=== PATIENT | female | born 1985 | race Caucasian/White ===

== ENCOUNTER 2016-05-19 05:40 | Inpatient (IN) | payer OTHER ==
[2016-05-19] MEDS ORDERED: LACTATED RINGERS 1,000 ML IV PRN (06:06)
[2016-05-19] MEDS ORDERED: OXYTOCIN IN LR 500 ML IV ONE ×2 (06:06→06:53)
[2016-05-19 06:33] VITALS: BMI 29.8
[2016-05-19] MEDS ORDERED: LIDOCAINE 1% (PRES FREE) 30 ML VIAL ONE (06:53)
[2016-05-19] MEDS ORDERED: OXYTOCIN 10 UNITS/ML VIAL ONE (06:53)
[2016-05-19] MEDS ORDERED: MINERAL OIL 25 ML BOT ONE (06:53)
[2016-05-19] MEDS ORDERED: LIDOCAINE Viscous 2% 15 ML UDCUP ONE (06:53)
[2016-05-19] MEDS ORDERED: PUMP TUBING ONE (06:53)
[2016-05-19] MEDS ORDERED: SODIUM CHLORIDE 0.9% FLUSH 10 ML ONE (06:54)
[2016-05-19] MEDS ORDERED: LACTATED RINGERS 0 ML ONE (06:54)
[2016-05-19] MEDS ORDERED: IV START KIT ONE (06:54)
[2016-05-19 06:58] LABS: HEMATOCRIT 37.6 % (37.0-47.0); MEAN CELL VOLUME 93.1 fl (81.0-99.0); MEAN CORPUSCULAR HEMOGLOBIN 29.7 pg (27.0-31.0); MEAN CORPUSCULAR HGB CONC 31.9 g/dl (33.0-37.0); RED CELL DISTRIBUTION WIDTH 12.7 % (11.5-14.5)
[2016-05-19] MEDS ORDERED: SODIUM CHLORIDE 0.9% FLUSH 20 ML ONE (07:19)
[2016-05-19] MEDS: FENTANYL 100 MCG/2 ML VIAL IV PRN ×3 (09:13→13:10)
[2016-05-19] MEDS: CALCIUM CARBONATE 500 MG TAB.CHEW PO PRN ×3 (10:37→15:41)
--- NOTE | 2016-05-19 13:14 | PCMAN ---
OB Admission Note - History : 1 Term: 0 : 0 Abortions (S&E): 0 Livin Gestational Age (weeks): 39 Days (#/7): 5 Admit Cervical Dilation:: 4 Admit Cervical Effacement (%):: 90 Admit Station:: -1 Admit Presentaton:: vertext Membrane Status: Intact Contractions: Yes Contraction Frequency:: 6-8 Heart Rate:: 130 Status:: category 1 EFW:: 6.5 Summary of Course:: DAtes by LMP, confirmed by US. NO complications. - Labs Blood Type: O (+) positive Hct/Hgb:: 37.6/12 Rubella Status: Immune GBS Status: Negative Abnormal Labs: None - Physical Exam General: Afebrile, Moderate Distress Psych/Mental Status: Mood/Affect Appropriate Neurological: Grossly Intact, Alert, Oriented x 4, Normal Speech, Normal Reflexes, Cranial Nerves 3-12 Intact HEENT: Atraumatic, PERRLA, EOMI, Mucous membr. moist/pink Lungs: Clear to Auscultation Bilaterally Cardiovascular: Regular Rate and Rhythm, No Murmur Abdomen: Normal Bowel Sounds Genitourinary: Normal Female Genitalia, No Edema Rectal Exam: Other (ext hemorrhoid) Extremities: Full ROM, No Edema Skin: Normal Color, No Rash - Problems (1) with 39 completed weeks gestation Status: Acute Code: Z3A.39 Assessment/Plan: Active labor, expect . IV Fentanyl ordered for pain management.
[2016-05-19] MEDS ORDERED: LIDOCAINE 1% 2 ML VIAL SUB-Q ONE (16:12)
[2016-05-19] MEDS ORDERED: LIDOCAINE 1% (PRES FREE) 30 ML VIAL SUB-Q ONE (16:15)
[2016-05-19] MEDS ORDERED: OXYCODONE HCL 5 MG TABLET PO PRN (16:47)
[2016-05-19] MEDS ORDERED: LANOLIN 50 APPLIC/7G TUBE TP PRN (16:47)
[2016-05-19] MEDS ORDERED: ACETAMINOPHEN 325 MG TABLET PO PRN (16:47)
[2016-05-19] MEDS ORDERED: OXYCODONE/ACETAMINOPHEN 5/325 MG TABLET PO PRN (16:47)
[2016-05-19] MEDS ORDERED: BENZOCAINE/MENTHOL 60 APPLIC/BOT TP PRN (16:47)
[2016-05-19] MEDS: IBUPROFEN 800 MG TABLET PO SCH ×2 (17:27→23:42)
--- NOTE | 2016-05-19 20:23 | PCMDEL ---
Delivery Note - Labor 1st stage (hr/min):: 10 hr/ 4 min 2nd stage (hr/min):: 39 min 3rd stage (hr/min):: 10 min Total (hr/min):: 10 hr/ 53 min Pushed (hr/min):: 39 min - Delivery Delivery (Date): 05/19/16 Delivery (Time): 16:04 Infant Gender: Female Weight: 3.2 kg Length: 1 ft 7.5 in Presentation: Cephalic Position: OA Umbilical Cord: 3 Vessel Delayed Cord Clamping:: 2-3 min 1 Minute Total: 9 5 Minute Total: 9 Placenta:: intact EBL:: 100 ml Perineum:: 2nd degree perineal laceration with left labial extension Suture:: 2-0 Chromic Anesthesia/Meds:: Local for repair Length ROM:: 3 hr Comments:: Beautiful, uncomplicated delivery.
[2016-05-20] MEDS: IBUPROFEN 800 MG TABLET PO SCH ×3 (05:41→18:31)
[2016-05-20 06:56] LABS: HEMATOCRIT 34.3 % (37.0-47.0); HEMOGLOBIN 11.1 gm/l (12.0-16.0)
[2016-05-20] MEDS ORDERED: DOCUSATE SODIUM 100 MG CAPSULE PO SCH (09:00)
[2016-05-20] MEDS ORDERED: PRENATAL VIT/FE FUMARATE/FA 1 TABLET PO SCH (09:00)
--- NOTE | 2016-05-20 10:29 | PDOC44 ---
- Subjective Day: 1 Reports Flatus, Reports Pain Tolerable, Reports , Reports Lochia Light, Reports Tolerating Regular Diet - Objective Temp Pulse Resp BP Pulse Ox 99.0 F 75 16 120/60 05/20/16 09:20 05/20/16 09:20 05/20/16 09:20 05/20/16 09:20 Lab Results 05/20/16 06:10 Hgb 11.1 L Hct 34.3 L Current Medications Generic Name Dose Route Start Last Admin Trade Name Freq PRN Reason Stop Dose Admin Acetaminophen 325 - 650 mg 05/19/16 16:47 Tylenol PO Q4H PRN Pain (Mild) Benzocaine/Menthol 1 applic 05/19/16 16:47 05/19/16 17:27 Dermoplast TP 1 bot PRN PRN Administration Patient Comfort Calcium Carbonate/Glycine 500 mg 05/19/16 10:20 05/19/16 15:41 Tums PO 500 mg DAILY PRN Administration Indigestion Docusate Sodium 100 mg 05/20/16 09:00 Colace PO DAILY [facility] Emollient Ointment 1 applic 05/19/16 16:47 [id number]-I-Ajtioy TP PRN PRN sore nipples Ibuprofen 800 mg 05/19/16 16:47 05/20/16 05:41 Motrin PO 800 mg Q6H ABBEY Administration Multivi/Iron Carb/Fe Sulf/FA/Prenat 1 tab 05/20/16 09:00 Plus PO DAILY ABBEY Oxycodone HCl 5 - 10 mg 05/19/16 16:47 Roxicodone PO Q3H PRN Pain (Severe) Oxycodone/Acetaminophen 1 - 2 tab 05/19/16 16:47 Percocet 5/325 PO Q4H PRN Pain (Moderate) Sodium Chloride 10 ml 05/19/16 16:47 05/19/16 17:08 Normal Saline 10ml Flush IV 10 ml PRN PRN Administration IV Flush Sodium Chloride 10 ml 05/19/16 17:00 05/19/16 17:28 Normal Saline 10ml Flush IV Not Given Q8HR [facility] - Physical Exam General: Afebrile, No Acute Distress Psych/Mental Status: Mood/Affect Appropriate, Bonding Well Neurological: Alert, Oriented x 4 HEENT: Atraumatic, PERRLA, EOMI, Mucous membr. moist/pink Lungs: Clear to Auscultation Bilaterally Cardiovascular: Regular Rate and Rhythm, No Murmur Breast: Soft, Skin intact, Nipples Intact, No Nipples Cracked Fundus: Firm, Midline, Below Umbilicus Abdomen: Normal Bowel Sounds Genitourinary: Normal Female Genitalia, Ecchymosis, Other (perineal sutures intact) Lochia: Light Extremities: Full ROM, No Edema, No Tenderness Skin: Normal Color, Warm, Dry, Intact, No Rash Wound MANAGER CARDIAC CATH: Dressing Saturated, Well Approximated - Problems:Assessment/Plan (1) (normal spontaneous vaginal delivery) Status: Acute Assessment/Plan: stable, continue routine PP care. (2) Perineal laceration during delivery, delivered Status: Acute Assessment/Plan: Bruised but intact with minimal swelling. Disposition: Stable, Anticipate DC Home Tomorrow
[2016-05-20 15:19] VITALS: BP 115/73
--- NOTE | 2016-05-20 18:03 | PDOC39B ---
Hospital Course: ADMIT DATE: 05/19/16 DISCHARGE DATE: 05/20/16 ADMISSION DIAGNOSES: Term in labor PROCEDURES: Spontaneous Vaginal Delivery with 2nd degree perineal laceration HISTORY OF PRESENT ILLNESS: 30 year old G1 T0 L0 at 39 weeks 5 days presenting with active labor, require 2 doses Fentanyl for pain management, had uncomplicated delivery with 2nd degree perineal laceration. HOSPITAL COURSE: The patient had uncomplicated post course, desires discharge at 24 hours. By day of discharge the patient is ambulating, eating, voiding, and passing flatus without difficulty. Pain is controlled and lochia is appropriate. She is [] - Physical Exam Vital Signs: Temp Pulse Resp BP Pulse Ox 98.1 F 83 16 115/73 05/20/16 15:16 05/20/16 15:16 05/20/16 15:16 05/20/16 15:16 General: Afebrile, No Acute Distress Neurological: Alert, Oriented x 4 Lungs: Clear to Auscultation Bilaterally Cardiovascular: Regular Rate and Rhythm, No Murmur Breast: Soft, No Nipples Cracked Fundus: Firm, Midline, Below Umbilicus Abdomen: Normal Bowel Sounds Genitourinary: Normal Female Genitalia (sutures intact), Ecchymosis Lochia: Light Extremities: Full ROM, No Edema Skin: Normal Color, Warm, Dry, Intact, No Rash Wound: Well Approximated - Discharge Diagnosis (1) (normal spontaneous vaginal delivery) Status: Acute Assessment/Plan: stable, discharge home. (2) Perineal laceration during delivery, delivered Status: Acute Assessment/Plan: Bruised but intact with minimal swelling. - Discharge Plan Condition: Good Disposition: Home Instruction Forms: Vaginal Discharge Instructions Follow-Up: Cesilia Shaikh MD [Staff Physician] - In 6 weeks
== END 2016-05-20 18:49 | disposition home or self-care (01) | DRG 775 ==
LOC: FBC 05:40 → EDSTATUS 05-21 21:02
PROVIDERS: ADMIT Family Medicine; ATTEND Family Medicine
PROC: 0KQM0ZZ Repair Perineum Muscle, Open Approach (ICD-10-PCS; principal; 2016-05-19)
PROC: 10E0XZZ Delivery of Products of Conception, External Approach (ICD-10-PCS; 2016-05-19)
DX: O70.1 Second degree perineal laceration during delivery (principal); Z37.0 Single live birth; O22.43 Hemorrhoids in pregnancy, third trimester; Z3A.39 39 weeks gestation of pregnancy

== ENCOUNTER 2016-05-27 10:02 | Outpatient (CLI) | payer OTHER | END 2016-05-27 10:03 | disposition home or self-care (01) | LOC: BABIESSH 10:02 | PROVIDERS: ATTEND Family Medicine | DX: Z39.1 Encounter for care and examination of lactating mother (principal) ==